=== PATIENT | male | born 1985 | race Two or more races ===

== ENCOUNTER 2022-09-03 12:08 | Emergency (ER) | payer BC ==
[~2022-09-03] VITALS: Ht 182.9 cm; Wt 102.1 kg
--- NOTE | 2022-09-03 12:15 | NUR ---
BIB [id number] FROM A REHAB FACILITY C/O CHEST PAIN X 2 WEEKS, BEING TREATED FOR FENTANYL DEPENDENCE. PLACED ON BED, AAOX4, BREATHING EVEN AND UNLABORED SATURATING 97%RA, ATTACHED TO MONITOR SHOWS NORMAL SINUS RHYTHM MN- [phone].
--- NOTE | 2022-09-03 12:55 | NUR ---
PANEL CUTTER AT BEDSIDE
[2022-09-03 13:13] LABS: BASOPHILS % (AUTO) 0.2 % (0.0-2.0); EOSINOPHILS % (AUTO) 1.8 % (0.0-6.0); HEMATOCRIT 46 % (39-51); HEMOGLOBIN 15.3 g/dL (13.5-17.5); LYMPHOCYTES # (AUTO) 2.8 K/uL (0.8-4.8); LYMPHOCYTES % (AUTO) 24.2 % (20.0-44.0); MEAN CORPUSCULAR HGB CONC 33 g/dl (31.0-36.0); MEAN CORPUSCULAR VOLUME 91 fL (80-96); MONOCYTES # (AUTO) 0.8 K/uL (0.1-1.30); MONOCYTES % (AUTO) 6.7 % (2.0-12.0); NEUTROPHILS # (AUTO) 7.8 K/uL (1.8-8.9); NEUTROPHILS % (AUTO) 67.1 % (43.0-81.0); PLATELET COUNT (AUTO) 321 K/uL (150-450); RED BLOOD CELL COUNT(AUTO) 5.11 MIL/uL (4.5-6.0); WHITE BLOOD COUNT (AUTO) 11.6 K/uL (4.3-11.0)
[2022-09-03 13:23] LABS: CALCIUM, SERUM 8.8 mg/dL (8.5-10.1); CARBON DIOXIDE 25 mmol/L (21-32); CHLORIDE 104 mmol/L (98-107); CREATININE 0.9 mg/dL (0.6-1.3); GLUCOSE 100 mg/dL (74-106); SODIUM SERUM 139 mmol/L (136-145); UREA NITROGEN, BLOOD 13 mg/dL (7-18)
--- NOTE | 2022-09-03 15:35 | NUR ---
Patient discharged to home in stable condition. Written and verbal after care instructions given. Patient and [facility] staff verbalizes understanding of instruction.
[2022-09-03 15:43] VITALS: BP 120/75
== END 2022-09-03 15:35 | disposition home or self-care (01) ==
LOC: ER 12:12
DX: R07.89 Other chest pain (principal); F17.200 Nicotine dependence, unspecified, uncomplicated
CPT/HCPCS: 36415; 71045-TC; 80048-TC; 84484-TC; 85025-TC